=== PATIENT | female | born 1940 | race Caucasian/White ===

== ENCOUNTER 2016-12-01 17:17 | Emergency (ER) | payer OTHER ==
[~2016-12-01] VITALS: Ht 152.4 cm; Wt 49.9 kg
[~2016-12-01 17:17] MED LIST: ESCI10TA PO; FEXO-47 PO; HYDR-1421 PO; SUMA100T2 PO; ZOLP-158 PO
[2016-12-01 19:13] LABS: Basophils # (auto) 0 uL; Basophils % (auto) 0.6 % (0.0-2.0); CONDITION AutoValidated; Eosinophils # (auto) 0 uL; Eosinophils % (auto) 0.8 % (0.0-7.0); Hematocrit 34.8 % (36.0-46.0); Hemoglobin 11.8 g/dL (12.2-16.2); Lymphocytes # (auto) 1.8 uL; Lymphocytes % (auto) 30.1 % (10.0-50.0); Mean Corpuscular Hemoglobin 30.7 pg (28.0-32.0); Mean Corpuscular Volume 90.4 fL (80.0-100.0); Mean Platelet Volume 7.5 fL (7.4-10.4); Monocytes # (auto) 0.4 uL; Monocytes % (auto) 7.4 % (0.0-12.0); Neutrophils # (auto) 3.6 uL; Neutrophils % (auto) 61.1 % (37.0-80.0); Platelet Count (auto) 267 10^3/uL (140-450); Red Cell Distribution Width 13.7 % (11.6-16.0); White Blood Cell 5.8 10^3/uL (4.4-10.8)
[2016-12-01 19:31] LABS: Albumin 3.8 g/dL (3.4-5.0); Anion Gap 8 (5-15); Blood Urea Nitrogen 16 mg/dL (7-18); Calcium 8.6 mg/dL (8.5-10.1); Carbon Dioxide 25 mmol/L (21-32); Chloride 108 mmol/L (98-107); Glucose 101 mg/dL (74-106); Potassium 3.8 mmol/L (3.5-5.1); Sodium 141 mmol/L (136-145)
[2016-12-01 19:32] LABS: Aspartate Aminotransferase 12 U/L (15-37); BUN/Creatinine Ratio 19.5; GFR African American 88 mL/min; GFR Non-African American 72 mL/min
[2016-12-01 19:50] LABS: Alkaline Phosphatase 73 U/L (45-117); Bilirubin, Total 0.2 mg/dL (0.2-1.0); Total Protein 7.3 g/dL (6.4-8.2)
[2016-12-01 20:36] LABS: Urine Bilirubin Negative (Negative); Urine Blood Negative /uL (Negative); Urine Color Yellow (Yellow); Urine Glucose Normal (Normal); Urine Ketone Negative (Negative); Urine Nitrite Negative (Negative); Urine RBC 4 /hpf (0 - 4); Urine Squamous Epithelial Cell FEW /hpf (<5)
[2016-12-01] MEDS ORDERED: MORPHINE SULF INJ 2 MG/ML SYRINGE 1ML IV ONE (20:45)
[2016-12-01] MEDS ORDERED: ONDANSETRON HCL 4 MG/2 ML VIAL IV ONE (20:45)
[2016-12-01 21:36] VITALS: BP 147/75
== END 2016-12-01 21:38 | disposition home or self-care (01) ==
LOC: ER 17:21
DX: G51.0 Bell's palsy (principal); G43.009 Migraine without aura, not intractable, without status migrainosus; G45.9 Transient cerebral ischemic attack, unspecified; M19.90 Unspecified osteoarthritis, unspecified site; I10 Essential (primary) hypertension; Z90.710 Acquired absence of both cervix and uterus
CPT/HCPCS: 36415; 70450; 71010; 80053; 81001; 84484; 85025; 93005; 96374; 96375; 99285; J2270; J2405

== ENCOUNTER 2017-06-22 12:40 | Inpatient (IN) | payer OTHER ==
[~2017-06-22] VITALS: Ht 152.4 cm; Wt 57.4 kg
[2017-06-22 13:25] LABS: Basophils # (auto) 0 uL; Basophils % (auto) 0.6 % (0.0-2.0); Eosinophils # (auto) 0.1 uL; Eosinophils % (auto) 0.9 % (0.0-7.0); Hematocrit 33.6 % (36.0-46.0); Hemoglobin 11.6 g/dL (12.2-16.2); Lymphocytes # (auto) 1.1 uL; Lymphocytes % (auto) 17.1 % (10.0-50.0); Mean Corpuscular Hemoglobin 30.9 pg (28.0-32.0); Mean Corpuscular Hgb Conc. 34.4 g/dL (32.0-36.0); Mean Corpuscular Volume 89.9 fL (80.0-100.0); Monocytes # (auto) 0.5 uL; Monocytes % (auto) 8.6 % (0.0-12.0); Neutrophils # (auto) 4.5 uL; Neutrophils % (auto) 72.8 % (37.0-80.0); Nucleated Red Blood Cells % 0.1 %; Platelet Count (auto) 298 10^3/uL (140-450); Red Blood Cells 3.73 10^6/uL (4.0-5.20); Red Cell Distribution Width 13.3 % (11.8-14.3); White Blood Cell 6.2 10^3/uL (4.4-10.8)
[2017-06-22 13:41] LABS: Albumin 3.8 g/dL (3.4-5.0); Anion Gap 6 (5-15); Blood Urea Nitrogen 8 mg/dL (7-18); Calcium 8.6 mg/dL (8.5-10.1); Carbon Dioxide 26 mmol/L (21-32); Chloride 100 mmol/L (98-107); Glucose 96 mg/dL (74-106); Magnesium 2.2 mg/dL (1.6-2.6); Potassium 3.7 mmol/L (3.5-5.1); Sodium 132 mmol/L (136-145)
[2017-06-22 13:43] LABS: Alanine Aminotransferase 28 U/L (13-56); Aspartate Aminotransferase 15 U/L (15-37); BUN/Creatinine Ratio 11.9; GFR African American 110 mL/min; GFR Non-African American 91 mL/min
[2017-06-22 13:48] LABS: Alkaline Phosphatase 95 U/L (45-117); Bilirubin, Total 0.4 mg/dL (0.2-1.0); Total Protein 7.5 g/dL (6.4-8.2)
[2017-06-22] MEDS ORDERED: SODIUM CHLORIDE 0.9% 1,000 ML IV ONE (16:09)
[2017-06-22] MEDS ORDERED: PROMETHAZINE HCL 25 MG/ML 1ML IV ONE (16:15)
[2017-06-22] MEDS ORDERED: MORPHINE SULFATE 4 MG/ML SYR/VIAL IV ONE (16:15)
[2017-06-22] MEDS ORDERED: cefTRIAXone 1GM/10ml IVPUSH 10 ML IV ONE (17:15)
[2017-06-22 17:20] LABS: Urine Bacteria NONE SEEN /hpf (None Seen); Urine Blood Negative /uL (Negative); Urine Specific Gravity 1.007 (1.001-1.035); Urine WBC 1 /hpf (0 - 5)
[2017-06-22] MEDS ORDERED: DOCUSATE SOD 100 MG CAP PO PRN (19:30)
[2017-06-22] MEDS ORDERED: ONDANSETRON HCL 4 MG/2 ML VIAL IV PRN (19:30)
[2017-06-22] MEDS ORDERED: ACETAMINOPHEN 325 MG TAB PO PRN (19:30)
[2017-06-22] MEDS ORDERED: IBUPROFEN 600 MG TAB PO PRN (19:30)
[2017-06-22] MEDS ORDERED: SUMAtriptan SUCCINATE 25 MG TAB PO PRN (19:30)
[2017-06-22] MEDS ORDERED: TEMAZEPAM 15 MG CAP PO PRN (19:30)
[2017-06-22] MEDS ORDERED: cloNIDine HCL 0.1 MG TAB PO PRN (20:30)
[2017-06-22] MEDS: HYDROcodone-ACET 5/325MG TAB PO PRN ×2 (20:43→22:08)
[2017-06-22] MEDS ORDERED: FAMOTIDINE 20 MG TAB PO SCH (22:00)
[2017-06-22] MEDS ORDERED: LEXAPRO 10MG PO SCH (22:00)
[2017-06-22] MEDS: SODIUM CHLOR 0.9% PF (SALINE LOCK) 10ML VIAL IV SCH (22:08)
[2017-06-23] MEDS: HYDROcodone-ACET 5/325MG TAB PO PRN ×2 (03:11→10:32)
[2017-06-23] MEDS: SODIUM CHLOR 0.9% PF (SALINE LOCK) 10ML VIAL IV SCH ×3 (05:54→21:48)
[2017-06-23 06:52] LABS: Basophils # (auto) 0 uL; Basophils % (auto) 0.8 % (0.0-2.0); Eosinophils # (auto) 0.1 uL; Hematocrit 31.7 % (36.0-46.0); Hemoglobin 10.9 g/dL (12.2-16.2); Lymphocytes # (auto) 1.4 uL; Lymphocytes % (auto) 26.1 % (10.0-50.0); Mean Corpuscular Hemoglobin 31.4 pg (28.0-32.0); Mean Corpuscular Hgb Conc. 34.5 g/dL (32.0-36.0); Monocytes # (auto) 0.6 uL; Monocytes % (auto) 11.5 % (0.0-12.0); Neutrophils # (auto) 3.2 uL; Neutrophils % (auto) 59.6 % (37.0-80.0); Platelet Count (auto) 282 10^3/uL (140-450); Red Blood Cells 3.48 10^6/uL (4.0-5.20); Red Cell Distribution Width 13.3 % (11.8-14.3); White Blood Cell 5.3 10^3/uL (4.4-10.8)
[2017-06-23 06:55] LABS: Calcium 8.3 mg/dL (8.5-10.1); Potassium 3.5 mmol/L (3.5-5.1)
[2017-06-23 06:59] LABS: Albumin 3.3 g/dL (3.4-5.0); BUN/Creatinine Ratio 15.7
[2017-06-23 07:01] LABS: Bilirubin, Total 0.4 mg/dL (0.2-1.0); Total Protein 6.6 g/dL (6.4-8.2)
[2017-06-23] MEDS ORDERED: CITA-77 PO (08:12)
[2017-06-23] MEDS ORDERED: ESCI10TA PO (08:15)
[2017-06-23] MEDS: CITALOPRAM HYDROBR 20 MG TAB PO SCH (10:32)
[2017-06-23] MEDS: PANTOPRAZOLE 40 MG TAB PO SCH (10:32)
[2017-06-23] MEDS: HCTZ 25 MG TAB PO SCH (10:33)
[2017-06-23] MEDS: MULTIPLE VITAMIN TAB PO SCH (10:33)
[2017-06-23 13:31] LABS: % Iron Saturation 23.1 % (15-50)
[2017-06-23] MEDS ORDERED: SUMATRIPTAN SUCCINATE 100 MG PO PRN (14:00)
[2017-06-23] MEDS ORDERED: HYDROCODONE ACETAMINOPHEN PO SCH (14:00)
[2017-06-23] MEDS ORDERED: OMEP20CA74 PO (14:01)
[2017-06-23] MEDS ORDERED: HYDR25TA4 PO (14:03)
[2017-06-23] MEDS ORDERED: PRA25T PO (14:07)
[2017-06-23] MEDS ORDERED: SUMAtriptan SUCCINATE 25 MG TAB PO PRN (14:15)
[2017-06-23] MEDS: MORPHINE SULF INJ 2 MG/ML SYRINGE 1ML IV PRN ×2 (17:39→21:48)
[2017-06-23 21:34] VITALS: BP 152/103
[2017-06-23] MEDS ORDERED: PATIENTS OWN MEDICATION (Escitalopram Oxalate (Lexapro) 1 TAB) PO SCH (22:00)
[2017-06-23] MEDS: ZOLPIDEM TARTRATE 5 MG TAB PO SCH (22:34)
[2017-06-23] MEDS: PRAMIPEXOLE DIHYDROCHLORIDE MO 0.25 MG TAB PO SCH (22:35)
[2017-06-24] MEDS: MORPHINE SULF INJ 2 MG/ML SYRINGE 1ML IV PRN ×3 (03:55→19:43)
[2017-06-24 05:03] VITALS: BP 154/78
[2017-06-24 05:53] LABS: Basophils # (auto) 0 uL; Basophils % (auto) 0.7 % (0.0-2.0); Eosinophils # (auto) 0.1 uL; Eosinophils % (auto) 1.7 % (0.0-7.0); Hematocrit 32.3 % (36.0-46.0); Hemoglobin 11.1 g/dL (12.2-16.2); Lymphocytes % (auto) 15.7 % (10.0-50.0); Mean Corpuscular Hemoglobin 31.3 pg (28.0-32.0); Mean Corpuscular Hgb Conc. 34.3 g/dL (32.0-36.0); Mean Corpuscular Volume 91.1 fL (80.0-100.0); Monocytes # (auto) 0.5 uL; Monocytes % (auto) 7.6 % (0.0-12.0); Neutrophils # (auto) 4.6 uL; Neutrophils % (auto) 74.3 % (37.0-80.0); Platelet Count (auto) 302 10^3/uL (140-450); Red Blood Cells 3.54 10^6/uL (4.0-5.20); Red Cell Distribution Width 13.6 % (11.8-14.3); White Blood Cell 6.2 10^3/uL (4.4-10.8)
[2017-06-24] MEDS: SODIUM CHLOR 0.9% PF (SALINE LOCK) 10ML VIAL IV SCH ×3 (06:00→21:52)
[2017-06-24] MEDS: PRAMIPEXOLE DIHYDROCHLORIDE MO 0.25 MG TAB PO SCH ×3 (06:00→21:52)
[2017-06-24 09:00] VITALS: BP 115/55
[2017-06-24] MEDS ORDERED: INFLUENZA QUAD 2017-2018 0.5 ML SYRG IM ONE (10:00)
[2017-06-24] MEDS ORDERED: PNEUMOCOCCAL VACC POLYS 25 MCG/0.5 ML VIAL IM ONE (10:00)
[2017-06-24] MEDS: PANTOPRAZOLE 40 MG TAB PO SCH (12:08)
[2017-06-24] MEDS: MULTIPLE VITAMIN TAB PO SCH (12:08)
[2017-06-24] MEDS: HCTZ 25 MG TAB PO SCH (12:08)
[2017-06-24] MEDS: CALCITONIN 200 UNIT/SPRAY NASAL SCH (12:09)
[2017-06-24] MEDS: FEXOFENADINE HCL 60 MG TAB PO SCH (12:09)
[2017-06-24] MEDS: CITALOPRAM HYDROBR 20 MG TAB PO SCH (12:09)
[2017-06-24] MEDS: HYDROcodone-ACET 5/325MG TAB PO PRN (12:49)
[2017-06-24 13:00] VITALS: BP 115/62
[2017-06-24] MEDS ORDERED: HYDR12.56 PO (16:37)
[2017-06-24] MEDS ORDERED: ALEN70TA55 PO (16:59)
[2017-06-24] MEDS ORDERED: ESCI20TA51 PO (16:59)
[2017-06-24 17:00] VITALS: BP 140/76
[2017-06-24] MEDS ORDERED: ZOLP10TA6 PO (17:06)
[2017-06-24] MEDS ORDERED: PRAM0.12 PO (17:12)
[2017-06-24] MEDS ORDERED: FLUT50SP NAS (17:17)
[2017-06-24] MEDS ORDERED: OLOP1DRO EACHEYE (17:17)
[2017-06-24] MEDS: ZOLPIDEM TARTRATE 5 MG TAB PO SCH (21:52)
[2017-06-24] MEDS: FERROUS SULFATE 325 MG TAB PO SCH (21:52)
[2017-06-24] MEDS: ASCORBIC ACID 500 MG TAB PO SCH (21:52)
[2017-06-24 22:00] VITALS: BP 155/68
[2017-06-25] MEDS: SODIUM CHLOR 0.9% PF (SALINE LOCK) 10ML VIAL IV SCH ×3 (05:46→23:23)
[2017-06-25] MEDS: FERROUS SULFATE 325 MG TAB PO SCH ×3 (05:46→23:23)
[2017-06-25] MEDS: PRAMIPEXOLE DIHYDROCHLORIDE MO 0.25 MG TAB PO SCH ×2 (05:46→14:12)
[2017-06-25] MEDS: ASCORBIC ACID 500 MG TAB PO SCH ×3 (05:46→23:24)
[2017-06-25 06:00] VITALS: BP 136/68
[2017-06-25 08:00] VITALS: BP 168/64
[2017-06-25] MEDS: FEXOFENADINE HCL 60 MG TAB PO SCH (09:34)
[2017-06-25] MEDS: CALCITONIN 200 UNIT/SPRAY NASAL SCH (09:34)
[2017-06-25] MEDS: MULTIPLE VITAMIN TAB PO SCH (09:34)
[2017-06-25] MEDS: PANTOPRAZOLE 40 MG TAB PO SCH (09:34)
[2017-06-25] MEDS: CITALOPRAM HYDROBR 20 MG TAB PO SCH (09:35)
[2017-06-25] MEDS: HCTZ 25 MG TAB PO SCH (09:35)
[2017-06-25] MEDS ORDERED: HYDR-4683 PO (10:56)
[2017-06-25 12:00] VITALS: BP 158/77
[2017-06-25 14:15] VITALS: BP 158/77
[2017-06-25] MEDS: MORPHINE SULF INJ 2 MG/ML SYRINGE 1ML IV PRN ×2 (15:35→20:21)
[2017-06-25 17:11] VITALS: BP 161/79
[2017-06-25 22:01] VITALS: BP 156/80
[2017-06-25] MEDS: ZOLPIDEM TARTRATE 5 MG TAB PO SCH (23:24)
[2017-06-25] MEDS: HYDROcodone-ACET 5/325MG TAB PO PRN (23:30)
[2017-06-26 04:36] VITALS: BP 133/65
[2017-06-26] MEDS: ASCORBIC ACID 500 MG TAB PO SCH ×2 (06:25→13:51)
[2017-06-26] MEDS: SODIUM CHLOR 0.9% PF (SALINE LOCK) 10ML VIAL IV SCH ×2 (06:25→13:51)
[2017-06-26] MEDS: FERROUS SULFATE 325 MG TAB PO SCH ×2 (06:25→13:51)
[2017-06-26] MEDS: MORPHINE SULF INJ 2 MG/ML SYRINGE 1ML IV PRN (06:26)
[2017-06-26 08:00] VITALS: BP 122/62
[2017-06-26 09:00] VITALS: BP 122/62
[2017-06-26] MEDS: FEXOFENADINE HCL 60 MG TAB PO SCH (09:19)
[2017-06-26] MEDS: PANTOPRAZOLE 40 MG TAB PO SCH (09:20)
[2017-06-26] MEDS: MULTIPLE VITAMIN TAB PO SCH (09:20)
[2017-06-26] MEDS: HCTZ 25 MG TAB PO SCH (09:20)
[2017-06-26] MEDS: CITALOPRAM HYDROBR 20 MG TAB PO SCH (09:20)
[2017-06-26] MEDS: CALCITONIN 200 UNIT/SPRAY NASAL SCH (09:21)
[2017-06-26 13:00] VITALS: BP 104/55
== END 2017-06-26 15:05 | disposition home or self-care (01) | DRG 185 ==
LOC: EDUNIT# 12:40 → EDBD 12:40 → ER 12:40 → OVERFLOW 12:41 → WEST WING 06-23 08:09
PROVIDERS: ADMIT Internal Medicine; ATTEND Internal Medicine
DX: S22.42XA Multiple fractures of ribs, left side, initial encounter for closed fracture (principal); D63.8 Anemia in other chronic diseases classified elsewhere; F41.9 Anxiety disorder, unspecified; F32.9 Major depressive disorder, single episode, unspecified; S00.03XA Contusion of scalp, initial encounter; Z23 Encounter for immunization; G43.909 Migraine, unspecified, not intractable, without status migrainosus; G47.00 Insomnia, unspecified; I10 Essential (primary) hypertension; J32.0 Chronic maxillary sinusitis; K21.9 Gastro-esophageal reflux disease without esophagitis; M19.90 Unspecified osteoarthritis, unspecified site; R26.9 Unspecified abnormalities of gait and mobility; S80.01XA Contusion of right knee, initial encounter; G25.81 Restless legs syndrome; W01.0XXA Fall on same level from slipping, tripping and stumbling without subsequent striking against object, initial encounter; M81.0 Age-related osteoporosis without current pathological fracture; Z82.3 Family history of stroke; Z86.73 Personal history of transient ischemic attack (TIA), and cerebral infarction without residual deficits; Z90.710 Acquired absence of both cervix and uterus; Z90.49 Acquired absence of other specified parts of digestive tract; Y93.89 Activity, other specified; Y92.89 Other specified places as the place of occurrence of the external cause; Y99.8 Other external cause status
CPT/HCPCS: 36415; 70450; 71045; 71046; 71111; 73562; 80053; 81001; 82728; 83540; 83550; 83735; 84484; 85025; 93306; 93886; 94761; 96361; 96374; 96375; 97163